=== PATIENT | female | born 1940 | race Caucasian/White ===

== ENCOUNTER 2024-05-11 06:08 | Day surgery (SDC) | payer OTHER, MEDICARE ==
[2024-05-09 15:16] VITALS: BMI 34.2
[2024-05-11] MEDS ORDERED: MIDAZOLAM HCL 2 MG/2 ML SINGLE DOSE VIAL ONE (07:26)
[2024-05-11] MEDS ORDERED: BUPIVACAINE HCL/PF 0.5% (5 MG/ML) 30 ML VIAL IJ ONE (07:26)
[2024-05-11] MEDS ORDERED: ACETAMINOPHEN INJECTION 100 ML ONE (07:26)
[2024-05-11] MEDS ORDERED: BUPIVACAINE LIPOSOME/PF (EXPAREL) 266 MG/20 ML VIAL ONE (07:26)
[2024-05-11] MEDS ORDERED: BUPIVACAINE HCL/PF 0.5% (5MG/ML) 10 ML VIAL ONE (07:31)
[2024-05-11] MEDS ORDERED: PROPOFOL 20 ML ONE (08:07)
[2024-05-11] MEDS ORDERED: DEXAMETHASONE SOD PHOSPHATE 4 MG/1 ML VIAL ONE (08:10)
[2024-05-11] MEDS ORDERED: ceFAZolin SODIUM 1 GM VIAL ONE (08:10)
[2024-05-11] MEDS ORDERED: TRANEXAMIC ACID 1000 MG/10 ML VIAL ONE (08:10)
[2024-05-11] MEDS ORDERED: ONDANSETRON 4 MG/2 ML VIAL ONE (08:10)
[2024-05-11] MEDS ORDERED: KETOROLAC TROMETHAMINE 30 MG/1 ML VIAL ONE (08:10)
[2024-05-11] MEDS ORDERED: ONDANSETRON 4 MG/2 ML VIAL IVPUSH PRN (08:34)
[2024-05-11] MEDS ORDERED: oxyCODONE HCL 5 MG TABLET PO PRN (08:34)
[2024-05-11] MEDS ORDERED: MAGNESIUM HYDROX 2400MG/30ML ORAL SUSPENSION 30 ML CUP PO PRN (10:05)
[2024-05-11] MEDS ORDERED: MAG HYDROX/AL HYDROX/SIMETH 30 ML UNIT-DOSE CUP PO PRN (10:05)
[2024-05-11] MEDS ORDERED: HALOPERIDOL LACTATE 5 MG/ML ONE (10:17)
[2024-05-11] MEDS: HALOPERIDOL LACTATE 5 MG/ML IVPUSH ONE (10:20)
[2024-05-11] MEDS: LACTATED RINGERS SOLUTION 1,000 ML IV SCH ×2 (11:10→14:50)
[2024-05-11 12:04] VITALS: RESP 18
[2024-05-11] MEDS: ONDANSETRON 4 MG/2 ML VIAL IVPUSH PRN (14:48)
[2024-05-11] MEDS: ACETAMINOPHEN 325 MG TABLET (FP) PO SCH (14:50)
[2024-05-11] MEDS: oxyCODONE HCL 5 MG TABLET PO PRN (16:41)
[2024-05-11] MEDS: CEFAZOLIN 2 GM/D5W 2 GM/50 ML ML IVPB SCH (16:41)
[2024-05-11] MEDS: TRANEXAMIC ACID - 1,000 MG in SODIUM CHLORIDE 50 ML IVPB SCH (21:01)
[2024-05-11] MEDS: DEXAMETHASONE 4 MG TABLET (FP) PO SCH (21:02)
[2024-05-11] MEDS: SENNOSIDES/DOCUSATE COMBO (SENNA PLUS) TABLET (UD) PO SCH (21:03)
[2024-05-11] MEDS: ATORVASTATIN CA 40 MG TABLET (FP) PO SCH (21:03)
[2024-05-11] MEDS: GABAPENTIN 300 MG CAPSULE PO SCH (21:03)
[2024-05-11] MEDS: ASPIRIN 81 MG CHEWABLE TABLETS PO SCH (21:03)
[2024-05-11] MEDS: CEFAZOLIN 2 GM in DEXTROSE 5%-WATER - 100 ML IVPB ONE (21:37)
[2024-05-11] MEDS: TRANEXAMIC ACID 1000 MG/10 ML VIAL IVPUSH ONE (21:37)
[2024-05-11] MEDS ORDERED: TRANEXAMIC ACID 1000 MG/10 ML VIAL IVPB SCH (22:00)
[2024-05-12] MEDS: HYDROCHLOROTHIAZIDE 12.5 MG CAPSULE (FP) PO SCH (09:43)
[2024-05-12] MEDS: VALSARTAN 80 MG TABLET PO SCH (09:46)
[2024-05-12] MEDS: MULTIVITAMINS (DAILY MVI) TABLET (FP) PO SCH (09:47)
[2024-05-12] MEDS: PANTOPRAZOLE 40 MG TABLET PO SCH (09:47)
[2024-05-12] MEDS: amLODIPine BESYLATE 5 MG TABLET (FP) PO SCH (09:48)
[2024-05-12] MEDS ORDERED: PATIENT'S OWN MEDICATION (NON-FORMULARY) (Valsartan/Hydrochlorothiazide [Valsartan-Hctz 80 PO SCH (10:00)
[2024-05-12] MEDS: ACETAMINOPHEN 325 MG TABLET (FP) PO ONE (11:03)
[2024-05-12 15:52] VITALS: BP 141/67; PULSE 73; TEMP 98.2
[2024-05-12] MEDS ORDERED: ACETAMINOPHEN 500 MG TABLET (FP) PO SCH (16:00)
== END 2024-05-12 15:20 | disposition home or self-care (01) ==
LOC: FASUSAT 06:08 → SUATTDRO 06:08 → FM/S 11:29 → FASUSAT 05-12 15:20
PROVIDERS: ATTEND Orthopaedic Surgery
PROC: 0SRC0J9 Replacement of Right Knee Joint with Synthetic Substitute, Cemented, Open Approach (ICD-10-PCS; principal; 2024-05-11 08:20)
DX: M17.11 Unilateral primary osteoarthritis, right knee (principal)
CPT/HCPCS: 27447; C1776; 73560-TC-RT-FY; 94760; 97010-GP; 97116-GP; 97162-GP; J0131